=== PATIENT | male | born 1935 | race Hispanic/Latino ===

== ENCOUNTER 2019-10-30 08:23 | Day surgery (SDC) | payer MEDICARE ==
[2019-10-28 17:05] LABS: BASOPHILS % (AUTO) 0.9 % (0.0-5.0); EOSINOPHILS % (AUTO) 5.3 % (0.0-8.0); LYMPHOCYTES % (AUTO) 26.2 % (21.0-51.0); MEAN CORPUSCULAR HEMOGLOBIN 23.4 pg (27.0-33.0); MEAN CORPUSCULAR VOLUME 78.1 fL (79-99); MONOCYTES % (AUTO) 8.8 % (3.0-13.0); PLATELET COUNT (AUTO) 267 K/uL (130-400); RED BLOOD CELL COUNT(AUTO) 4.74 MIL/uL (4.50-6.20); RED CELL DISTRIBUTION WIDTH 16.1 % (11.0-15.5); WHITE BLOOD COUNT (AUTO) 7.5 K/uL (4.8-10.8)
[2019-10-28 17:15] LABS: CREATININE 2.5 mg/dL (0.5-1.5); POTASSIUM 4.9 mmol/L (3.5-5.1)
--- NOTE | 2019-10-29 14:59 | NUR ---
ekg informed dr. beckett of ekg. no NEW ORDERS. PROCEED WITH PLANNED PROCEDURE.
[2019-10-29 15:09] VITALS: BP 165/64
--- NOTE | 2019-10-29 15:46 | NUR ---
LABS FAXED AND REPORTED ABNORMAL BUN/CREA TO DR. EMANUEL PATHAK ASST. SHE WILL INFORM DR. VANCE.
[~2019-10-30] VITALS: Ht 168.9 cm; Wt 92.9 kg
[2019-10-30] VITALS (17 sets, daily range): BP systolic 110–152; BP diastolic 49–75
[~2019-10-30 08:23] MED LIST: AMLO10TA7 PO; CYCL30DR OP; FINA5TAB41 PO; LATA2.5D2 OU; LEVO75TA10 PO; LINA5TAB PO; LOSA100T58 PO; TAMS-1 PO
[2019-10-30] MEDS ORDERED: DEXAMETHASONE SOD PHOSPHATE 10MG/ML 1ML VIAL ONE (09:38)
[2019-10-30] MEDS ORDERED: SODIUM CHLORIDE 0.9% 1000ML 1,000 ML IV ONE (09:38)
[2019-10-30] MEDS ORDERED: LIDOCAINE PF 2% 5ML ABBOJECT ONE (09:38)
[2019-10-30] MEDS ORDERED: LEVOFLOXACIN 500 MG/D5W 100 ML 100 ML ONE (09:38)
[2019-10-30] MEDS ORDERED: PROPOFOL 10 MG/ML 20ML VIAL IV ONE (09:39)
[2019-10-30] MEDS ORDERED: ONDANSETRON HCL 4 MG/2 ML VIAL ONE (09:39)
[2019-10-30] MEDS ORDERED: NEOSTIGMINE 5MG/5ML SYR IV ONE (09:39)
[2019-10-30] MEDS ORDERED: MIDAZOLAM HCL 1 MG/ML 2ML VIAL ONE (09:39)
[2019-10-30] MEDS ORDERED: GLYCOPYRROLATE 1 MG/5 ML SYRINGE ONE ×2 (09:39→12:50)
[2019-10-30] MEDS ORDERED: ROCURONIUM 10MG/1ML SYR 10 MG/ML ML ONE (09:39)
[2019-10-30] MEDS ORDERED: FENTANYL CITRATE PF 50 MCG/1 ML 2ML VIAL ONE ×3 (09:39→12:12)
[2019-10-30] MEDS ORDERED: EPHEDRINE SULFATE 50 MG/ML AMPULE ONE (10:53)
[2019-10-30] MEDS ORDERED: ESMOLOL HCL 10 MG/ML 10 ML VIAL ONE (10:56)
[2019-10-30] MEDS ORDERED: OPIUM/BELLADONNA ALKALOIDS 1 EACH SUPP.RECT RC ONE (11:59)
[2019-10-30] MEDS ORDERED: FUROSEMIDE 10 MG/ML 4ML VIAL ONE (12:43)
[2019-10-30] MEDS ORDERED: PHENAZOPYRIDINE HCL 200 MG TABLET ONE (13:09)
--- NOTE | 2019-10-30 13:50 | NUR ---
POST OP RECEIVED PT POST OP FROM [facility] SHERIDAN FROM PACU. PT IN NO DISTRESS. WILL CONTINUE TO MONITOR PT
--- NOTE | 2019-10-30 14:25 | NUR ---
DISCHARGE PT AND SPOUSE GIVEN DISCHARGE INSTRUCTIONS, SCRIPT, BEDSIDE ENRIQUE BAG. BOTH VOICED UNDERSTANDING. PT TAKEN OUT IN NO DISTRESS VIA W/C BY INE[facility] FLOWERS
== END 2019-10-30 14:25 | disposition home or self-care (01) ==
LOC: DAH 08:23
PROVIDERS: ATTEND Urology
DX: N40.1 Benign prostatic hyperplasia with lower urinary tract symptoms (principal); R33.9 Retention of urine, unspecified; N32.89 Other specified disorders of bladder; D41.4 Neoplasm of uncertain behavior of bladder; I12.9 Hypertensive chronic kidney disease with stage 1 through stage 4 chronic kidney disease, or unspecified chronic kidney disease; E11.22 Type 2 diabetes mellitus with diabetic chronic kidney disease; N18.9 Chronic kidney disease, unspecified; E03.9 Hypothyroidism, unspecified; I25.10 Atherosclerotic heart disease of native coronary artery without angina pectoris; E66.9 Obesity, unspecified; Z88.0 Allergy status to penicillin; Z79.899 Other long term (current) drug therapy
CPT/HCPCS: 36415; 52648; 80048; 82948 ×2; 85025; 93005; A4213; A4215; A4221; A4222; A4223; A4358; A4510; A4520; A4600; A4663; A6260; J1100; J1940; J1956; J2001; J2250; J2405; J2704; J2710; J3010 ×3; J3490 ×4; J7030 ×2; J7120; 96365